=== PATIENT | male | born 1935 | race Two or more races ===

== ENCOUNTER 2020-10-27 17:16 | Emergency (ER) | payer BC ==
[2020-10-27 17:25] VITALS: BP 131/65; PULSE 76; TEMP 98.2; BMI 27.4
[2020-10-27] MEDS ORDERED: ACETAMINOPHEN 500 MG TABLET (FP) PO ONE (18:59)
[2020-10-27] MEDS ORDERED: ACETAMINOPHEN 500 MG TABLET (FP) ONE (19:18)
[2020-10-27 20:18] LABS: PH,URINE 5.5 (5.0-8.0); URINE APPEARANCE CLEAR; URINE BILIRUBIN NEGATIVE (NEGATIVE); URINE COLOR YELLOW; URINE GLUCOSE (UA) NEGATIVE (NEGATIVE); URINE KETONE TRACE (NEGATIVE); URINE LEUK ESTERASE NEGATIVE (NEGATIVE); URINE NITRITE NEGATIVE (NEGATIVE); URINE PROTEIN NEGATIVE (NEGATIVE)
[2020-10-27 20:18] LABS: BASO % 0.3 % (0-2.0); EOS % 0.8 % (0-4.5); HEMATOCRIT 35.1 % (35.4-49); HEMOGLOBIN 11.6 GM/dL (11.7-16.9); LYMPH % 21.1 % (8-40); MCH 28.8 pg (25.7-33.7); MEAN CELL VOLUME 87.4 fl (80-96); MEAN PLT VOLUME 7.6 fl (7.5-11.1); MONO % 12.9 % (3.8-10.2); NEUT % 64.9 % (42.8-82.8); PLATELET COUNT 145 K/MM3 (134-434); RBC 4.02 M/mm3 (4.00-5.60); RDW 16.2 % (11.9-15.9); WHITE BLOOD COUNT 6.9 K/mm3 (4.0-10.0)
[2020-10-27 20:38] LABS: CALCIUM 8.6 mg/dL (8.5-10.1)
[2020-10-27 20:40] LABS: ALBUMIN 3.1 g/dl (3.4-5.0); BLOOD UREA NITROGEN 15.3 mg/dL (7-18)
[2020-10-27 20:42] LABS: CREATININE 0.8 mg/dL (0.55-1.3)
[2020-10-27 20:43] LABS: BILIRUBIN,TOTAL 0.4 mg/dL (0.2-1)
== END 2020-10-27 20:57 | disposition home or self-care (01) ==
LOC: JER 17:16
DX: M54.5 Low back pain (principal)
CPT/HCPCS: 36415; 80053; 81003; 83690; 85025; 87086; 99283-25

== ENCOUNTER 2022-04-13 12:55 | Inpatient (IN) | payer BC ==
[2022-04-13] MEDS ORDERED: SODIUM CHLORIDE 0.9% 500 ML INFUS.BAG IV ONE ×2 (14:40→16:08)
[2022-04-13] MEDS ORDERED: ACETAMINOPHEN INJECTION 100 ML IVPB ONE (15:04)
[2022-04-13] MEDS ORDERED: ACETAMINOPHEN 1000 MG/100 ML BAG IVPB ONE (15:04)
[2022-04-13 15:18] LABS: BASO % 0.1 % (0-2.0); HEMATOCRIT 36.8 % (35.4-49); HEMOGLOBIN 12.1 GM/dL (11.7-16.9); LYMPH % 5.2 % (8-40); MCH 28.5 pg (25.7-33.7); MCHC 32.8 g/dl (32.0-35.9); MEAN CELL VOLUME 86.9 fl (80-96); MEAN PLT VOLUME 7.1 fl (7.5-11.1); MONO % 5.3 % (3.8-10.2); NEUT % 89.4 % (42.8-82.8); PLATELET COUNT 137 10^3/uL (134-434); RBC 4.24 M/mm3 (4.00-5.60); WHITE BLOOD COUNT 11.5 K/mm3 (4.0-10.0)
[2022-04-13 15:25] LABS: INR 1.13 (0.83-1.09)
[2022-04-13 15:27] LABS: ALBUMIN 2.8 g/dl (3.4-5.0); BLOOD UREA NITROGEN 24.9 mg/dL (7-18); CALCIUM 8.7 mg/dL (8.5-10.1)
[2022-04-13 15:28] LABS: ACTIVATED PTT 31.4 SECONDS (25.2-36.5)
[2022-04-13 15:30] LABS: CREATININE 1.2 mg/dL (0.55-1.3)
[2022-04-13 15:32] LABS: BILIRUBIN,TOTAL 0.6 mg/dL (0.2-1); LACTIC ACID 2.9 mmol/L (0.4-2.0); TOT PROT 7.8 g/dl (6.4-8.2)
[2022-04-13] MEDS ORDERED: PIPERACILLIN/TAZOB 3.375 GM 3.375 GM in DEXTROSE 5%-WATER - 50 ML IVPB ONE (17:53)
[2022-04-13] MEDS ORDERED: VANCOMYCIN 1 GM in D5W (PRE-DOCKED) 1,000 MG/250 ML IVPB ONE (17:53)
[2022-04-13] MEDS ORDERED: VANCOMYCIN/WATER FOR INJ (PEG) 1,000 MG/200 ML BAG IVPB ONE (18:14)
[2022-04-13] MEDS ORDERED: PIPERACILLIN/TAZOB 3.375 GM 3.375 GM/50 ML BAG IVPB ONE (18:15)
[2022-04-13 19:00] LABS: EPI CELLS 12 /uL (0-25.1); HYALINE CASTS 7 /uL (0-3.1); PH,URINE 5.5 (5.0-8.0); URINE APPEARANCE CLEAR; URINE BACTERIA 16 /uL (0-1359); URINE BILIRUBIN NEGATIVE (NEGATIVE); URINE COLOR DK YELLOW; URINE GLUCOSE (UA) NEGATIVE (NEGATIVE); URINE KETONE TRACE (NEGATIVE); URINE LEUK ESTERASE NEGATIVE (NEGATIVE); URINE NITRITE NEGATIVE (NEGATIVE); URINE PROTEIN 1+ (NEGATIVE); URINE RBC 9 /uL (0-23.9); URINE WBC 38 /uL (0-25.8)
[2022-04-13] MEDS ORDERED: DEXTROSE 5%-0.45% SALINE 1,000 ML IV SCH (19:45)
[2022-04-13 21:37] VITALS: BMI 25.2
[2022-04-13] MEDS ORDERED: ACETAMINOPHEN 1000 MG/100 ML BAG IVPB PRN (23:37)
[2022-04-14] MEDS: PIPERACILLIN/TAZOB 4.5 GM 4.5 GM in DEXTROSE 5%-WATER 100 ML IVPB SCH ×4 (02:18→13:53)
[2022-04-14] MEDS ORDERED: FENTANYL CITRATE/PF 50 MCG/ML VIAL ONE ×3 (08:44→10:04)
[2022-04-14] MEDS ORDERED: MIDAZOLAM HCL 2 MG/2 ML SINGLE DOSE VIAL ONE (08:44)
[2022-04-14] MEDS ORDERED: PROPOFOL 20 ML ONE (08:44)
[2022-04-14] MEDS ORDERED: ROCURONIUM BROMIDE 50 MG/5 ML SYRINGE ONE ×2 (08:48→10:37)
[2022-04-14] MEDS ORDERED: BUPIVACAINE HCL/PF 0.25% (2.5MG/ML) 10 ML VIAL IJ ONE ×2 (09:40)
[2022-04-14] MEDS ORDERED: DEXAMETHASONE SOD PHOSPHATE 4 MG/1 ML VIAL ONE (09:44)
[2022-04-14] MEDS ORDERED: ONDANSETRON 4 MG/2 ML VIAL ONE (09:44)
[2022-04-14] MEDS ORDERED: BUPIVACAINE HCL/PF 0.25% (2.5MG/ML) 10 ML VIAL ONE (09:45)
[2022-04-14] MEDS ORDERED: NEOSTIGMINE METHYLSULFATE 0.5 MG/1 ML - 10 ML MDV ONE (11:15)
[2022-04-14] MEDS ORDERED: GLYCOPYRROLATE 0.2 MG/1 ML VIAL ONE (11:17)
[2022-04-14] MEDS ORDERED: KETOROLAC TROMETHAMINE 30 MG/1 ML VIAL ONE (11:53)
[2022-04-14] MEDS ORDERED: oxyCODONE HCL 5 MG TABLET PO PRN (12:43)
[2022-04-14] MEDS ORDERED: ONDANSETRON 4 MG/2 ML VIAL IVPUSH PRN (13:08)
[2022-04-14] MEDS ORDERED: LACTATED RINGERS SOLUTION 1,000 ML IV SCH (13:15)
[2022-04-14] MEDS: SODIUM CHLORIDE 1,000 ML IV SCH (14:00)
[2022-04-14 16:36] LABS: BASO % 0.1 % (0-2.0); HEMOGLOBIN 9.4 GM/dL (11.7-16.9); LYMPH % 5.6 % (8-40); MCH 29.2 pg (25.7-33.7); MCHC 33.4 g/dl (32.0-35.9); MEAN CELL VOLUME 87.3 fl (80-96); MEAN PLT VOLUME 7.1 fl (7.5-11.1); MONO % 4.7 % (3.8-10.2); NEUT % 89.6 % (42.8-82.8); PLATELET COUNT 93 10^3/uL (134-434); RBC 3.21 M/mm3 (4.00-5.60); RDW 16.1 % (11.9-15.9); WHITE BLOOD COUNT 8.9 K/mm3 (4.0-10.0)
[2022-04-14 16:56] LABS: BLOOD UREA NITROGEN 23.3 mg/dL (7-18); CALCIUM 7.7 mg/dL (8.5-10.1)
[2022-04-14 17:02] LABS: BILIRUBIN,TOTAL 0.8 mg/dL (0.2-1); TOT PROT 5.9 g/dl (6.4-8.2)
[2022-04-14] MEDS: PIPERACILLIN/TAZOB 3.375 GM 3.375 GM in DEXTROSE 5%-WATER - 50 ML IVPB SCH (17:05)
[2022-04-14 17:27] LABS: ALBUMIN 2.1 g/dl (3.4-5.0)
[2022-04-14] MEDS ORDERED: PIPERACILLIN/TAZOB 4.5 GM 4.5 GM in DEXTROSE 5%-WATER 100 ML IVPB SCH (18:00)
[2022-04-14] MEDS: DOCUSATE SODIUM 100 MG CAPSULE (FP) PO SCH (21:47)
[2022-04-14] MEDS: oxyCODONE HCL 5 MG TABLET PO PRN (21:48)
[2022-04-15] MEDS: PIPERACILLIN/TAZOB 3.375 GM 3.375 GM in DEXTROSE 5%-WATER - 50 ML IVPB SCH ×3 (01:18→17:09)
[2022-04-15] MEDS: DOCUSATE SODIUM 100 MG CAPSULE (FP) PO SCH (05:41)
[2022-04-15 07:01] VITALS: RESP 18
[2022-04-15] MEDS ORDERED: PATIENT'S OWN MEDICATION (NON-FORMULARY) (Memantine Hcl/Donepezil Hcl [Namzaric 28 Mg-10 M PO SCH (10:00)
[2022-04-15] MEDS ORDERED: PATIENT'S OWN MEDICATION (NON-FORMULARY) (Valsartan/Hydrochlorothiazide [Diovan Hct 160-12 PO SCH (10:00)
[2022-04-15] MEDS ORDERED: POTASSIUM CHLORIDE TABS 20 MEQ TABLET.ER (FP) PO ONE ×2 (10:45→22:45)
[2022-04-15] MEDS: ESCITALOPRAM OXALATE 10 MG TABLET PO SCH (11:00)
[2022-04-15] MEDS: POLYETHYLENE GLYCOL (HEALTHYLAX) 3350 17 GM PACKET PO SCH ×2 (11:00→21:09)
[2022-04-15] MEDS: GABAPENTIN 300 MG CAPSULE PO SCH ×2 (11:00→21:09)
[2022-04-15] MEDS: VALSARTAN 160 MG TABLET PO SCH (11:01)
[2022-04-15] MEDS: MEMANTINE HCL 10 MG TABLET (FP) PO SCH ×2 (11:01→21:09)
[2022-04-15 11:04] LABS: BASO % 0.1 % (0-2.0); HEMATOCRIT 31.1 % (35.4-49); HEMOGLOBIN 10.2 GM/dL (11.7-16.9); LYMPH % 6.7 % (8-40); MCH 28.6 pg (25.7-33.7); MCHC 32.7 g/dl (32.0-35.9); MEAN CELL VOLUME 87.4 fl (80-96); MEAN PLT VOLUME 7.4 fl (7.5-11.1); MONO % 5.2 % (3.8-10.2); PLATELET COUNT 129 10^3/uL (134-434); RBC 3.55 M/mm3 (4.00-5.60); RDW 16.2 % (11.9-15.9); WHITE BLOOD COUNT 11.8 K/mm3 (4.0-10.0)
[2022-04-15 11:18] LABS: INR 1.17 (0.83-1.09); PROTHROMBIN TIME (PATIENT) 13.5 SEC (9.7-13.0)
[2022-04-15 11:21] LABS: ACTIVATED PTT 27.1 SECONDS (25.2-36.5)
[2022-04-15 11:33] LABS: ALBUMIN 2.2 g/dl (3.4-5.0); BLOOD UREA NITROGEN 20.4 mg/dL (7-18)
[2022-04-15 11:35] LABS: CREATININE 0.9 mg/dL (0.55-1.3)
[2022-04-15 11:37] LABS: BILIRUBIN,TOTAL 0.6 mg/dL (0.2-1); TOT PROT 6.1 g/dl (6.4-8.2)
[2022-04-15 11:41] LABS: CALCIUM 8.1 mg/dL (8.5-10.1)
[2022-04-15] MEDS: KCL 10 MEQ IVPB 10 MEQ/100 ML INFUS.BAG IVPB SCH ×2 (13:13→15:17)
[2022-04-15 13:33] LABS: BASO % 0.1 % (0-2.0); HEMATOCRIT 29.8 % (35.4-49); HEMOGLOBIN 9.8 GM/dL (11.7-16.9); MCH 28.7 pg (25.7-33.7); MCHC 32.9 g/dl (32.0-35.9); MEAN CELL VOLUME 87.3 fl (80-96); MEAN PLT VOLUME 7.2 fl (7.5-11.1); MONO % 5.7 % (3.8-10.2); NEUT % 87.2 % (42.8-82.8); PLATELET COUNT 128 10^3/uL (134-434); RBC 3.41 M/mm3 (4.00-5.60); RDW 15.7 % (11.9-15.9); WHITE BLOOD COUNT 10.6 K/mm3 (4.0-10.0)
[2022-04-15 13:49] LABS: ALBUMIN 2.2 g/dl (3.4-5.0); BLOOD UREA NITROGEN 19.8 mg/dL (7-18)
[2022-04-15 13:54] LABS: BILIRUBIN,TOTAL 0.5 mg/dL (0.2-1); TOT PROT 6.1 g/dl (6.4-8.2)
[2022-04-15 14:00] LABS: CREATININE 0.9 mg/dL (0.55-1.3)
[2022-04-15] MEDS: SODIUM CHLORIDE 1,000 ML IV SCH (15:42)
[2022-04-15] MEDS: DONEPEZIL HCL 10 MG TABLET (FP) PO SCH (21:09)
[2022-04-15] MEDS ORDERED: HALOPERIDOL LACTATE 5 MG/ML IM ONE (22:30)
[2022-04-16] MEDS: PIPERACILLIN/TAZOB 3.375 GM 3.375 GM in DEXTROSE 5%-WATER - 50 ML IVPB SCH ×3 (01:57→17:19)
[2022-04-16] MEDS: MEMANTINE HCL 10 MG TABLET (FP) PO SCH ×2 (10:24→21:03)
[2022-04-16] MEDS: HYDROCHLOROTHIAZIDE 12.5 MG CAPSULE (FP) PO SCH (10:24)
[2022-04-16] MEDS: VALSARTAN 160 MG TABLET PO SCH (10:24)
[2022-04-16] MEDS: GABAPENTIN 300 MG CAPSULE PO SCH ×2 (10:24→21:03)
[2022-04-16] MEDS: ESCITALOPRAM OXALATE 10 MG TABLET PO SCH (10:25)
[2022-04-16] MEDS: POLYETHYLENE GLYCOL (HEALTHYLAX) 3350 17 GM PACKET PO SCH ×2 (10:34→21:03)
[2022-04-16 11:37] LABS: BASO % 0.2 % (0-2.0); EOS % 0.5 % (0-4.5); HEMOGLOBIN 9.8 GM/dL (11.7-16.9); LYMPH % 10.8 % (8-40); MCH 28.1 pg (25.7-33.7); MCHC 31.7 g/dl (32.0-35.9); MEAN CELL VOLUME 88.6 fl (80-96); MEAN PLT VOLUME 7.2 fl (7.5-11.1); MONO % 5.8 % (3.8-10.2); NEUT % 82.7 % (42.8-82.8); PLATELET COUNT 123 10^3/uL (134-434); RBC 3.49 M/mm3 (4.00-5.60); RDW 16.2 % (11.9-15.9); WHITE BLOOD COUNT 5.4 K/mm3 (4.0-10.0)
[2022-04-16 11:38] LABS: INR 1.1 (0.83-1.09); PROTHROMBIN TIME (PATIENT) 12.7 SEC (9.7-13.0)
[2022-04-16 12:25] LABS: MAGNESIUM 2.3 mg/dL (1.8-2.4)
[2022-04-16 12:26] LABS: ALBUMIN 2.1 g/dl (3.4-5.0); CALCIUM 7.9 mg/dL (8.5-10.1)
[2022-04-16 12:27] LABS: BLOOD UREA NITROGEN 14.1 mg/dL (7-18)
[2022-04-16 12:30] LABS: TOT PROT 5.9 g/dl (6.4-8.2)
[2022-04-16 12:31] LABS: BILIRUBIN,TOTAL 0.5 mg/dL (0.2-1)
[2022-04-16 12:32] LABS: CREATININE 0.9 mg/dL (0.55-1.3)
[2022-04-16] MEDS ORDERED: LEVALBUTEROL HCL 0.31 MG/3 ML VIAL.NEB IH PRN (12:57)
[2022-04-16] MEDS ORDERED: POTASSIUM CHLORIDE TABS 20 MEQ TABLET.ER (FP) PO ONE (13:31)
[2022-04-16] MEDS: SODIUM CHLORIDE 1,000 ML IV SCH (18:37)
[2022-04-16] MEDS: DONEPEZIL HCL 10 MG TABLET (FP) PO SCH (21:02)
[2022-04-16] MEDS: oxyCODONE HCL 5 MG TABLET PO PRN (21:02)
[2022-04-17] MEDS: PIPERACILLIN/TAZOB 3.375 GM 3.375 GM in DEXTROSE 5%-WATER - 50 ML IVPB SCH ×2 (01:55→10:02)
[2022-04-17] MEDS: ESCITALOPRAM OXALATE 10 MG TABLET PO SCH (10:05)
[2022-04-17] MEDS: MEMANTINE HCL 10 MG TABLET (FP) PO SCH (10:05)
[2022-04-17] MEDS: GABAPENTIN 300 MG CAPSULE PO SCH (10:05)
[2022-04-17] MEDS: VALSARTAN 160 MG TABLET PO SCH (10:05)
[2022-04-17] MEDS: HYDROCHLOROTHIAZIDE 12.5 MG CAPSULE (FP) PO SCH (10:06)
[2022-04-17] MEDS: POLYETHYLENE GLYCOL (HEALTHYLAX) 3350 17 GM PACKET PO SCH (10:06)
[2022-04-17 11:45] LABS: BASO % 0.4 % (0-2.0); EOS % 0.8 % (0-4.5); HEMATOCRIT 29.1 % (35.4-49); HEMOGLOBIN 9.6 GM/dL (11.7-16.9); LYMPH % 14.4 % (8-40); MEAN CELL VOLUME 87.8 fl (80-96); MEAN PLT VOLUME 6.7 fl (7.5-11.1); MONO % 8.6 % (3.8-10.2); NEUT % 75.8 % (42.8-82.8); PLATELET COUNT 118 10^3/uL (134-434); RBC 3.31 M/mm3 (4.00-5.60); RDW 15.7 % (11.9-15.9); WHITE BLOOD COUNT 4.5 K/mm3 (4.0-10.0)
[2022-04-17 11:47] LABS: INR 1.12 (0.83-1.09); PROTHROMBIN TIME (PATIENT) 12.9 SEC (9.7-13.0)
[2022-04-17 12:09] LABS: BLOOD UREA NITROGEN 10.6 mg/dL (7-18)
[2022-04-17 12:12] LABS: CREATININE 0.9 mg/dL (0.55-1.3)
[2022-04-17 12:14] LABS: BILIRUBIN,TOTAL 0.4 mg/dL (0.2-1); TOT PROT 5.6 g/dl (6.4-8.2)
[2022-04-17 13:25] VITALS: BP 113/66; PULSE 75; TEMP 98.5
== END 2022-04-17 15:00 | disposition home health service (06) | DRG 418 ==
LOC: JER 12:55 → JERBED 19:31 → J5S 21:49
PROVIDERS: ADMIT Internal Medicine; ATTEND Family Medicine
PROC: 0FT44ZZ Resection of Gallbladder, Percutaneous Endoscopic Approach (ICD-10-PCS; principal; 2022-04-14 09:00)
DX: K81.0 Acute cholecystitis (principal); E87.20 Acidosis, unspecified; J98.11 Atelectasis; R10.9 Unspecified abdominal pain; F03.90 Unspecified dementia, unspecified severity, without behavioral disturbance, psychotic disturbance, mood disturbance, and anxiety; K76.0 Fatty (change of) liver, not elsewhere classified; K74.60 Unspecified cirrhosis of liver; D72.829 Elevated white blood cell count, unspecified; E86.0 Dehydration
CPT/HCPCS: 0241U-QW; 36415; 70450-TC; 71045-TC-FY; 74177-TC; 76705-TC; 80053; 81003; 82105; 83605; 83690; 83735; 84484; 85025; 85610; 85730; 86704; 86803; 86850; 86900; 86901; 87040; 87070; 87075; 87076; 87086; 87186; 87205; 87340; 87517; 88304-TC; 93005; 93010; 93306-TC; 94010; 94760; 99285-25; Q9967

== ENCOUNTER 2024-04-10 15:43 | Observation (INO) | payer BC, OTHER ==
[2024-04-10 17:53] LABS: BASO % 0.4 % (0-2.0); EOS % 0.5 % (0-4.5); HEMATOCRIT 22.4 % (35.4-49); HEMOGLOBIN 7.5 GM/dL (11.7-16.9); LYMPH % 21.1 % (8-40); MCH 29.6 pg (25.7-33.7); MCHC 33.7 g/dl (32.0-35.9); MEAN CELL VOLUME 87.9 fl (80-96); MEAN PLT VOLUME 6.4 fl (7.5-11.1); MONO % 12.8 % (3.8-10.2); NEUT % 65.2 % (42.8-82.8); PLATELET COUNT 120 10^3/uL (134-434); RBC 2.54 M/mm3 (4.00-5.60); RDW 16.3 % (11.9-15.9); WHITE BLOOD COUNT 3.9 K/mm3 (4.0-10.0)
[2024-04-10 18:06] LABS: CALCIUM 8.5 mg/dL (8.5-10.1)
[2024-04-10 18:07] LABS: ALBUMIN 2.2 g/dl (3.4-5.0); BLOOD UREA NITROGEN 21.5 mg/dL (7-18); MAGNESIUM 2.2 mg/dL (1.8-2.4)
[2024-04-10 18:08] LABS: INR 1.11 (0.83-1.09); PROTHROMBIN TIME (PATIENT) 12.7 SEC (9.7-13.0)
[2024-04-10 18:11] LABS: ACTIVATED PTT 33.1 SECONDS (25.2-36.5); BILIRUBIN,TOTAL 0.3 mg/dL (0.2-1)
[2024-04-10 18:14] LABS: N-TERMINAL BNP 1649.5 pg/ml (5-450)
[2024-04-10] MEDS ORDERED: CEFTRIAXONE 1 GM/50 ML BAG ONE (18:44)
[2024-04-10 19:47] LABS: URINE APPEARANCE CLEAR; URINE BILIRUBIN NEGATIVE (NEGATIVE); URINE COLOR YELLOW; URINE GLUCOSE (UA) NEGATIVE (NEGATIVE); URINE KETONE NEGATIVE (NEGATIVE); URINE LEUK ESTERASE NEGATIVE (NEGATIVE); URINE NITRITE NEGATIVE (NEGATIVE); URINE PROTEIN TRACE (NEGATIVE); URINE UROBILINOGEN 0.2 mg/dL (0.2-1.0)
[2024-04-10] MEDS: CEFTRIAXONE 1,000 MG in DEXTROSE 5%-WATER - 50 ML IVPB ONE (20:00)
[2024-04-10] MEDS ORDERED: DOXYCYCLINE HYCLATE 100 MG VIAL ONE (20:19)
[2024-04-10] MEDS: DOXYCYCLINE INJECTION 100 MG in DEXTROSE 5%-WATER 100 ML IVPB ONE (20:26)
[2024-04-10] MEDS: HALOPERIDOL LACTATE 5 MG/ML IM ONE (22:20)
[2024-04-11 01:33] VITALS: BMI 24.6
[2024-04-11] MEDS: FUROSEMIDE 40 MG/4 ML INJECTABLE VIAL IVPUSH SCH (10:37)
[2024-04-11] MEDS: CEFTRIAXONE 1 G/50 ML PREMIX 50 ML IVPB SCH (10:38)
[2024-04-11] MEDS: AZITHROMYCIN IVPB 500 MG/250 ML BAG IVPB ONE (10:42)
[2024-04-11] MEDS ORDERED: ALBUTEROL SO4 2.5/IPRATROPIUM 0.5 INH SOL 3 ML VIAL.NEB. NEB PRN (10:49)
[2024-04-11 11:56] LABS: HEMOGLOBIN 7.9 GM/dL (11.7-16.9); MCH 29.3 pg (25.7-33.7); MEAN CELL VOLUME 88.7 fl (80-96); MEAN PLT VOLUME 6.4 fl (7.5-11.1); PLATELET COUNT 127 10^3/uL (134-434); RBC 2.71 M/mm3 (4.00-5.60); RDW 16.7 % (11.9-15.9); WHITE BLOOD COUNT 3.6 K/mm3 (4.0-10.0)
[2024-04-11 12:17] LABS: POTASSIUM 4.2 mmol/L (3.5-5.1)
[2024-04-11 12:19] LABS: ALBUMIN 2.3 g/dl (3.4-5.0); BLOOD UREA NITROGEN 16.9 mg/dL (7-18); CALCIUM 8.6 mg/dL (8.5-10.1)
[2024-04-11 12:20] LABS: MAGNESIUM 2.2 mg/dL (1.8-2.4)
[2024-04-11 12:22] LABS: CREATININE 1.1 mg/dL (0.55-1.3)
[2024-04-11 12:24] LABS: BILIRUBIN,TOTAL 0.3 mg/dL (0.2-1); TOT PROT 8.6 g/dl (6.4-8.2)
[2024-04-11] MEDS: ACETAMINOPHEN 325 MG TABLET (FP) PO PRN (16:18)
[2024-04-11] MEDS: HEPARIN NA (PORCINE) 5,000 UNITS/ML 1ML VIAL SQ SCH (21:12)
[2024-04-11] MEDS: HALOPERIDOL LACTATE 5 MG/ML IM PRN (21:12)
[2024-04-11] MEDS: IRON SUCROSE INJECTION 200 MG in SODIUM CHLORIDE 100 ML IVPB ONE (21:13)
[2024-04-12 01:08] VITALS: RESP 18
[2024-04-12 07:28] LABS: MEAN PLT VOLUME 6.4 fl (7.5-11.1); RBC 2.64 M/mm3 (4.00-5.60); WHITE BLOOD COUNT 3.5 K/mm3 (4.0-10.0)
[2024-04-12 07:31] LABS: BASO % 0.3 % (0-2.0); EOS % 1.8 % (0-4.5); HEMATOCRIT 23.1 % (35.4-49); LYMPH % 20.6 % (8-40); MCH 30.2 pg (25.7-33.7); MCHC 34.6 g/dl (32.0-35.9); MEAN CELL VOLUME 87.4 fl (80-96); MONO % 12.6 % (3.8-10.2); NEUT % 64.7 % (42.8-82.8); PLATELET COUNT 123 10^3/uL (134-434); RDW 16.7 % (11.9-15.9)
[2024-04-12 07:37] LABS: POTASSIUM 3.7 mmol/L (3.5-5.1)
[2024-04-12 07:39] LABS: ALBUMIN 2.3 g/dl (3.4-5.0); BLOOD UREA NITROGEN 18.3 mg/dL (7-18); CALCIUM 8.8 mg/dL (8.5-10.1)
[2024-04-12 07:40] LABS: MAGNESIUM 2.1 mg/dL (1.8-2.4)
[2024-04-12 07:43] LABS: BILIRUBIN,TOTAL 0.4 mg/dL (0.2-1); TOT PROT 8.6 g/dl (6.4-8.2)
[2024-04-12] MEDS: methylPREDNISolone NA SUCC 40 MG/1 ML VIAL IVPUSH SCH (08:17)
[2024-04-12] MEDS: AZITHROMYCIN IVPB 500 MG/250 ML BAG IVPB SCH (09:18)
[2024-04-12] MEDS: predniSONE 20 MG TABLET (UD) PO SCH (10:45)
[2024-04-13 08:21] LABS: BASO % 0.1 % (0-2.0); HEMATOCRIT 24.2 % (35.4-49); HEMOGLOBIN 8.3 GM/dL (11.7-16.9); LYMPH % 17.6 % (8-40); MCH 30.2 pg (25.7-33.7); MCHC 34.5 g/dl (32.0-35.9); MEAN CELL VOLUME 87.5 fl (80-96); MEAN PLT VOLUME 6.5 fl (7.5-11.1); NEUT % 73.3 % (42.8-82.8); PLATELET COUNT 152 10^3/uL (134-434); RBC 2.76 M/mm3 (4.00-5.60); RDW 16.9 % (11.9-15.9); WHITE BLOOD COUNT 5.2 K/mm3 (4.0-10.0)
[2024-04-13 08:43] LABS: POTASSIUM 3.6 mmol/L (3.5-5.1)
[2024-04-13 08:49] LABS: CALCIUM 8.9 mg/dL (8.5-10.1)
[2024-04-13 08:51] LABS: ALBUMIN 2.4 g/dl (3.4-5.0); BLOOD UREA NITROGEN 21.3 mg/dL (7-18)
[2024-04-13 08:54] LABS: BILIRUBIN,TOTAL 0.3 mg/dL (0.2-1); TOT PROT 8.9 g/dl (6.4-8.2)
[2024-04-13] MEDS: guaiFENesin/CODEINE 5 ML UNIT-DOSE CUPS PO PRN (10:08)
[2024-04-13 14:26] VITALS: BP 113/67; PULSE 73; TEMP 98
== END 2024-04-13 16:15 | disposition home or self-care (01) ==
LOC: JER 15:43 → UNDOADMOB 19:59 → JERBED 19:59 → INTOOBSV 19:59 → JERBED 21:35 → J4S 21:35 → JERBED 04-11 15:26 → J4S 04-11 15:26
PROVIDERS: ADMIT Family Medicine; ATTEND Family Medicine
PROC: 3E03329 Introduction of Other Anti-infective into Peripheral Vein, Percutaneous Approach (ICD-10-PCS; principal; 2024-04-11)
PROC: 3E033GC Introduction of Other Therapeutic Substance into Peripheral Vein, Percutaneous Approach (ICD-10-PCS; 2024-04-11)
PROC: 3E023NZ Introduction of Analgesics, Hypnotics, Sedatives into Muscle, Percutaneous Approach (ICD-10-PCS; 2024-04-11)
PROC: 3E023GC Introduction of Other Therapeutic Substance into Muscle, Percutaneous Approach (ICD-10-PCS; 2024-04-11)
DX: I50.33 Acute on chronic diastolic (congestive) heart failure (principal); D64.9 Anemia, unspecified; J44.1 Chronic obstructive pulmonary disease with (acute) exacerbation; F03.90 Unspecified dementia, unspecified severity, without behavioral disturbance, psychotic disturbance, mood disturbance, and anxiety; I11.0 Hypertensive heart disease with heart failure; J44.9 Chronic obstructive pulmonary disease, unspecified; K75.81 Nonalcoholic steatohepatitis (NASH); M19.90 Unspecified osteoarthritis, unspecified site; Z90.49 Acquired absence of other specified parts of digestive tract; Z87.891 Personal history of nicotine dependence
CPT/HCPCS: 0241U-QW; 36415; 70450-TC; 71045-TC-FY; 80048; 80053; 81003; 82550; 82728; 83036; 83540; 83550; 83735; 83880; 84443; 84484; 85025; 85027; 85610; 85730; 87086; 93005; 93010; 96365; 96366; 96367; 96368; 96372; 96375; 99285-25; G0378; J1644; J1756

== ENCOUNTER 2024-12-24 14:17 | Inpatient (IN) | payer BC ==
[2024-12-24 14:26] VITALS: BMI 26.1
[2024-12-24 15:06] LABS: BASOPHILS # 0.01 x10^3/uL (0.01-0.08); RDW 14.6 % (12.6-16.6)
[2024-12-24 15:08] LABS: ABSOLUTE IMMATURE GRANULOCYTES 0.01 x10^3/uL (0.0-0.031); EOSINOPHIL % 0.7 % (0.8-7.0); EOSINOPHILS # 0.02 x10^3/uL (0.04-0.54); IMMATURE PLATELET FRACTION # 2.60 x10^3/uL; MCHC 31.1 g/dl (32.3-36.5); MEAN CELL VOLUME 100.6 fl (79.0-92.2); MEAN PLT VOLUME 10.6 fl (9.4-12.4); MONOCYTE # 0.32 x10^3/uL (0.30-0.82); MONOCYTE % 10.9 % (5.3-12.2)
[2024-12-24 15:22] LABS: CO2 26 mmol/L (21-32); GLUCOSE,RANDOM 127 mg/dL (74-106)
[2024-12-24 15:25] LABS: CREATININE 1.3 mg/dL (0.55-1.3)
[2024-12-24 15:26] LABS: TOT PROT 9.7 g/dl (6.4-8.2)
[2024-12-24 15:27] LABS: ALK PHOS 66 U/L (45-117)
[2024-12-24 15:30] LABS: SGOT/AST 119 U/L (15-37); SGPT/ALT 15 U/L (13-61)
[2024-12-24] MEDS ORDERED: CEFTRIAXONE 1 GM/50 ML BAG ONE (15:58)
[2024-12-24 15:59] LABS: EPI CELLS 15 /uL (0-25.1); HYALINE CASTS 1 /uL (0-3.1); URINE APPEARANCE CLEAR; URINE BACTERIA 115 /uL (0-1359); URINE BILIRUBIN NEGATIVE (NEGATIVE); URINE COLOR YELLOW; URINE GLUCOSE (UA) NEGATIVE (NEGATIVE); URINE KETONE NEGATIVE (NEGATIVE); URINE LEUK ESTERASE 2+ (NEGATIVE); URINE NITRITE NEGATIVE (NEGATIVE); URINE PROTEIN 1+ (NEGATIVE); URINE RBC 23 /uL (0-23.9); URINE UROBILINOGEN 1.0 mg/dL (0.2-1.0); URINE WBC 72 /uL (0-25.8)
[2024-12-24] MEDS ORDERED: AZITHROMYCIN IVPB 500 MG/250 ML BAG IVPB ONE (16:15)
[2024-12-24] MEDS: AZITHROMYCIN IVPB 500 MG in DEXTROSE 5%-WATER - 250 ML IVPB ONE (16:20)
[2024-12-24 17:32] LABS: CO2 30.0 mmol/L (21-32); GLUCOSE,RANDOM 130.0 mg/dL (74-106)
[2024-12-24 17:35] LABS: CREATININE 1.2 mg/dL (0.55-1.3)
[2024-12-24 18:57] LABS: HIV INTERPRETATION NEGATIVE (NEGATIVE)
[2024-12-24 19:01] LABS: HCV DIAGNOSTIC IN-HOUSE W/RFLX NON-REACTIVE (NONREACTIVE)
[2024-12-24] MEDS: HALOPERIDOL LACTATE 5 MG/ML IM ONE (20:32)
[2024-12-24] MEDS: GABAPENTIN 300 MG CAPSULE PO SCH (22:13)
[2024-12-24] MEDS ORDERED: LORazepam 2 MG/ML SDV VIAL IVPUSH PRN (23:02)
[2024-12-25] MEDS: HALOPERIDOL LACTATE 5 MG/ML IM PRN (03:04)
[2024-12-25 06:59] LABS: ABSOLUTE IMMATURE GRANULOCYTES 0.04 x10^3/uL (0.0-0.031); BASOPHILS # 0.00 x10^3/uL (0.01-0.08); EOSINOPHIL % 0.9 % (0.8-7.0); EOSINOPHILS # 0.03 x10^3/uL (0.04-0.54); MCHC 31.0 g/dl (32.3-36.5); MEAN CELL VOLUME 98.7 fl (79.0-92.2); MEAN PLT VOLUME 9.9 fl (9.4-12.4); MONOCYTE # 0.32 x10^3/uL (0.30-0.82); MONOCYTE % 9.3 % (5.3-12.2); RDW 13.8 % (12.6-16.6)
[2024-12-25 07:32] LABS: CO2 28.0 mmol/L (21-32); GLUCOSE,RANDOM 105.0 mg/dL (74-106)
[2024-12-25 07:34] LABS: SGPT/ALT 8.0 U/L (13-61)
[2024-12-25 07:35] LABS: CREATININE 1.0 mg/dL (0.55-1.3); SGOT/AST 17.0 U/L (15-37)
[2024-12-25 07:36] LABS: TOT PROT 8.2 g/dl (6.4-8.2)
[2024-12-25 07:37] LABS: ALK PHOS 66.0 U/L (45-117)
[2024-12-25 09:34] LABS: LDL CHOLESTEROL (ONLY SJRH) 41.0 mg/dL (5-100)
[2024-12-25 09:37] LABS: N-TERMINAL BNP 773.6 pg/ml (5-450)
[2024-12-25 09:40] VITALS: BP 136/64; PULSE 75; RESP 19; TEMP 97.7
[2024-12-25] MEDS ORDERED: PATIENT'S OWN MEDICATION (NON-FORMULARY) (Memantine Hcl/Donepezil Hcl [Namzaric 28 Mg-10 M PO SCH (10:00)
[2024-12-25] MEDS: FUROSEMIDE 40 MG TABLET (FP) PO SCH (10:34)
[2024-12-25] MEDS: MEMANTINE HCL 10 MG TABLET (FP) PO SCH (10:35)
[2024-12-25] MEDS: ESCITALOPRAM OXALATE 10 MG TABLET PO SCH (10:35)
[2024-12-25] MEDS: CEFTRIAXONE 1 GM in DEXTROSE 5%-WATER - 50 ML IVPB SCH (10:36)
[2024-12-25] MEDS: ACETAMINOPHEN 1000 MG/100 ML BAG IVPB PRN (11:43)
[2024-12-25] MEDS: AZITHROMYCIN IVPB 250 MG in DEXTROSE 5%-WATER - 250 ML IVPB SCH (11:45)
[2024-12-25] MEDS ORDERED: DONEPEZIL HCL 10 MG TABLET (FP) PO SCH (22:00)
== END 2024-12-25 14:28 | disposition home health service (06) | DRG 308 ==
LOC: JER 14:17 → JERBED 16:12 → J4S 18:39 → OBSVTOIN 21:15
PROVIDERS: ADMIT Family Medicine; ATTEND Family Medicine
DX: I48.91 Unspecified atrial fibrillation (principal); J18.9 Pneumonia, unspecified organism; D61.818 Other pancytopenia; J98.11 Atelectasis; F03.90 Unspecified dementia, unspecified severity, without behavioral disturbance, psychotic disturbance, mood disturbance, and anxiety; I11.0 Hypertensive heart disease with heart failure; I50.9 Heart failure, unspecified; J44.9 Chronic obstructive pulmonary disease, unspecified; I45.10 Unspecified right bundle-branch block; K74.60 Unspecified cirrhosis of liver; K75.81 Nonalcoholic steatohepatitis (NASH)
CPT/HCPCS: 36415; 71045-TC-FY; 71250-TC; 80048; 80053; 80061; 81003; 83036; 83735; 83880; 84439; 84443; 84484; 85025; 86803; 87086; 87389; 87899; 93005; 93010; 99285-25; G0378